=== PATIENT | female | born 1955 | race Caucasian/White ===

== ENCOUNTER → 2017-01-25 | Outpatient (CLI) | payer MEDICARE ==
[~2017-01-25] MED LIST: AMANTADINE50 MG/5 ML GT; CARDIZEM60 MG GT; CIPRO500 MG GT; COUMADIN2.5 MG GT; COUMADIN5 MG GT; CULTURELLE1 CAP GT; DEPAKENE250 MG/5 M GT; DILTIAZEM GT; DULCOLAX-DPS10 MG PR; HYDROCODON-ACE1 EAC4 PO; KEPPRA DPS500 MG/51 GT; LEXAPRO DPS10 MG GT; LINZESS145 MCG PO; LOPRESSOR DPS100 MG GT; MAALOX DPS30 ML GT; MILK OF MAGNESI10 ML PO; MYCOSTATIN PWD15 GM TP; NITROSTAT0.4 MG SL; PEPCID DPS20 MG GT; SENOKOT S1 TAB PO; SEROQUEL25 MG GT; SURFAK240 MG PO; SYMMETREL GT; SYNTHROID200 MCG GT; TYLENOL DP650 MG/20. GT; TYLENOL325 MG GT; VALIUM5 MG GT; VALPROIC A250 MG/5 M GT; VITAMIN C500 M1 GT; [UNRECOGNIZED DRUG - OTHER] PO
== END | disposition home or self-care (01) ==
LOC: RAD.S 14:30
PROC: 0D20XYZ Change Other Device in Upper Intestinal Tract, External Approach (ICD-10-PCS; principal; 2017-01-25)
DX: I48.91 Unspecified atrial fibrillation (principal); I10 Essential (primary) hypertension; Z86.73 Personal history of transient ischemic attack (TIA), and cerebral infarction without residual deficits